=== PATIENT | female | born 1975 | race Caucasian/White ===

== ENCOUNTER → 2019-12-17 09:30 | Outpatient (CLI) | payer SELFPAY | PROVIDERS: Anesthesiology; PCP Family Medicine; Referring Provider Urology; Visit Provider Urology | DX: U07.1 COVID-19 (principal) | CPT/HCPCS: 87635; C9803; U0003 ==

== ENCOUNTER → 2020-02-18 12:45 | Outpatient (CLI) | payer SELFPAY ==
[2014-06-23 06:41] VITALS: BMI 37.1
[2020-02-18 16:00] LABS: Color, Urine Yellow (Yellow); Glucose, Dipstick Normal (Normal); Ketone-Dipstick Negative (Negative); Leukocyte Esterase-Dipstick 500 /ul (Negative); Nitrite-Dipstick Positive (Negative); Occult Blood-Urine 50 /ul (Negative); Protein-Dipstick Negative (Negative); Urine Bilirubin Dipstick Negative (Negative); Urine Clarity Clear (Clear); Urine Urobilinogen Normal (Normal)
== END ==
PROVIDERS: PCP Physician Assistant; Referring Provider Urology; Visit Provider Urology
DX: N39.0 Urinary tract infection, site not specified (principal)
CPT/HCPCS: 81002; 87077; 87086; 87088; 87186

== ENCOUNTER 2020-02-21 09:05 | Day surgery (SDC) | payer SELFPAY ==
[2014-06-23 06:41] VITALS: BMI 37.1
[2020-02-21] VITALS (8 sets, daily range): BP systolic 133–156; BP diastolic 90–104; PULSE 68–84; RESP 14–16; TEMP 36.2–36.7; O2SAT 93–99; BMI 38.2
--- NOTE | 2020-02-21 09:08 | OP.PCM_ITS ---
Problem List (1) Left renal stone Status: Acute Report of Operation Date of Procedure: 02/21/20 Pre-Operative Diagnosis: left renal calculus Post-Operative Diagnosis: same Surgery/Procedure Performed:: cystoscopy, left ureteral stent insertion, left renal extracorporeal shockwave lithotripsy Type of Anesthesia:: General Specimen's removed: none Description of Procedure: The patient is a 44-year-old female with a large left renal calculus identified on imaging. After discussing the risk benefits and alternatives, she agreed to proceed with surgical intervention. Informed consent was obtained. Patient is on Eliquis for PE and has been on this for more than 3 months and has stopped it in preparation for intervention. Patient was taken to the operating room and placed on the operating room table. Anesthesia monitored the head, neck, airway, IV access and vital signs throughout the case. Once anesthesia was appropriate ministered the patient was placed into dorsal lithotomy position was prepped and draped in usual sterile fashion. A cystourethroscopy was performed revealing no evidence of urethral or bladder abnormality. The left ureteral orifice was identified and intubated with a 0.035 Glidewire. A 6 Malay 24 cm double-J stent was inserted over the wire with good curling in the renal pelvis as seen on fluoroscopy, as well as the urinary bladder. The patient's bladder was then emptied and she was positioned for shockwave lithotripsy. The stone was easily identified. 3000 shocks were applied to the stone which appeared to be fragmented at the conclusion of the case. The patient was then awakened and taken to the recovery room in good condition. There were no complications during this procedure. Grafts/Implants Used: 6x24 JJ stent - Complications none - Admit VTE Documentation VTE Present on Admission: Yes VTE Mechan Device Prophylaxis: SCD's VTE Pharm Prophylaxis ordered?: Yes
--- NOTE | 2020-02-21 09:14 | DCINST_ITS ---
Discharge Diet: No Restrictions Discharge Activity: Return to Normal Activity, May not drive while taking narcotic pain medications. May resume sexual activity in: No Restrictions Call your doctor if you observe: Fever of 101 or Higher, Inability to urinate, Inability to have a bowel movement, Calf discomfort, Uncontrolled pain Allergies/Adverse Reactions: Allergies No Known Allergies Allergy (Verified 02/03/20 13:15) Medications to take at Discharge Lisinopril [Zestril] 20 mg PO DAILY 06/17/14 Apixaban [Eliquis] 5 mg PO BID 11/27/19 Oxycodone HCl/Acetaminophen [Percocet 5/325] 1 tablet PO Q8H PRN PRN 7 Days #20 tablet 02/21/20 Phenazopyridine HCl [Pyridium] 200 mg PO TID PRN PRN 7 Days #30 tab 02/21/20 The following prescriptions were given: Oxycodone HCl/Acetaminophen [Percocet 5/325] 1 tablet PO Q8H PRN PRN 7 Days #20 tablet PRN Reason: Pain Transmission Status: Received by [facility] Phenazopyridine HCl [Pyridium] 200 mg PO TID PRN PRN 7 Days #30 tab PRN Reason: Bladder Spasms Transmission Status: Pending to [facility] Primary Care Physician: Odalys Barclay PA [Primary Care Provider] - Test Results: Test results from this visit will be discussed in further detail at your follow- up appointment, if applicable. Please Follow Up With: Jaquelin Snell MD When: call for appt to be seen in 2-3 weeks Proposed Discharge Date: 02/21/20
[2020-02-21] MEDS: Lactated Ringers 1,000 ML 100 ML IV (09:48)
[2020-02-21] MEDS: Cefazolin 2 GM in 0.9% Normal Saline 100 ML IV (10:53)
[2020-02-21] MEDS: Acetaminophen 325 MG Tablet PO (13:42)
[2020-02-21] MEDS: oxyCODONE 5 MG Tablet PO (13:42)
== END 2020-02-21 15:05 | disposition home or self-care (01) ==
LOC: SDC 09:10 → AC 09:11
PROVIDERS: PCP Physician Assistant; Referring Provider Urology; Visit Provider Urology
PROC: (CPT 50590; principal; 2020-02-21 10:15)
DX: N20.0 Calculus of kidney (principal); I10 Essential (primary) hypertension; Z87.442 Personal history of urinary calculi; Z86.711 Personal history of pulmonary embolism; Z79.01 Long term (current) use of anticoagulants; Z86.16 Personal history of COVID-19
CPT/HCPCS: 00918; 52356; J7120; C2617; J2405

== ENCOUNTER → 2020-02-24 11:45 | Outpatient (CLI) | payer SELFPAY ==
[2020-02-21 09:27] VITALS: BMI 38.2
[2020-02-24 15:47] LABS: Hematocrit 44.1 % (37-47); Hemoglobin 14.4 g/dL (12.0-15.0); Mean Corp Hgb Conc 32.7 g/dL (32-36); Mean Corpuscular Hgb 28.2 pg (27.0-32.0); Mean Corpuscular Volume 86.5 fL (81-99); Mean Platelet Vol. 10.4 fl (6.2-12.0); Platelet Count 275 K/mm3 (150-450); RBC Distribution Width CV 13.5 % (11.6-14.6); RBC Distribution Width SD 42.9 fl (35.1-43.9)
[2020-02-24 16:13] LABS: Anion Gap 9 (5-15); BUN 15 mg/dL (7-18); BUN/Creat Ratio 11.3 RATIO (10-20); Calcium,Total 9.1 mg/dL (8.5-10.1); Chloride 100 mmol/L (98-107); Creatinine, Serum 1.33 mg/dL (0.55-1.02); EST Glomerular Filtration Rate 46 mL/min (>60); Est Glom Filt Rate - Afr Amer 55 mL/min (>60); Glucose 74 mg/dL (74-106); Potassium 3.6 mmol/L (3.5-5.1); Sodium Level 133 mmol/L (136-145)
== END ==
PROVIDERS: PCP Physician Assistant; Referring Provider Urology; Visit Provider Urology
DX: N20.0 Calculus of kidney (principal); N39.0 Urinary tract infection, site not specified
CPT/HCPCS: 36415; 80048; 85027; 87086

== ENCOUNTER → 2020-02-26 12:58 | Outpatient (CLI) | payer SELFPAY ==
[2020-02-21 09:27] VITALS: BMI 38.2
--- NOTE | 2020-02-26 13:04 | US_ITS ---
STUDY: RENAL ULTRASOUND - COMPLETE REASON FOR EXAM: Female, 44 years old. LEFT FLANK PAIN -- HX OF NEPHROLITHIASIS -- LEFT LITHOTRIPSY DONE 5 DAYS AGO -- RIGHT LITHOTRIPSY DONE 8 YEARS AGO TECHNIQUE: Ultrasound evaluation of the kidneys was performed with real-time and static vasquez-scale imaging. COMPARISON: None. FINDINGS: RIGHT KIDNEY: Normal location of the right kidney, which is normal in size. The right kidney measures 10.8 cm x 5.4 cm x 5 cm. There is a normal cortex of the right kidney. The renal cortex measures 1.7 cm. There is no right renal mass or cyst. There are 2 nonobstructive intrarenal calculi measuring 5 mm. There is no right hydronephrosis. DISTAL RIGHT URETER: There is non-visualization of the distal right ureter. There is no demonstrated right ureterovesical junction calculus. There is a visualized right ureteral jet. LEFT KIDNEY: Normal location of the left kidney, which is normal in size. The left kidney measures 12.8 cm x 6.3 cm x 6.3 cm. There is a normal cortex of the left kidney. The renal cortex measures 1.9 cm. There is a 1.8 cm x 1.9 cm x 1.5 cm left renal cyst. There are 2 nonobstructive intrarenal calculi. The larger measures 8 mm. There is moderate hydronephrosis of the left kidney. DISTAL LEFT URETER: There is non-visualization of the distal left ureter. There is no demonstrated left ureterovesical junction calculus. There is a visualized left ureteral jet. AORTA: There is no elongation or tortuosity of the abdominal aorta. Aorta measures: Proximal cm. Middle cm. Distal cm. Aorta measure transversely: Proximal cm. Middle cm. Distal cm. There is no demonstrated aneurysm.. I.V.C.: The IVC is patent. BLADDER: The distended urinary bladder has a volume of 151 ml. There is a normal wall thickness of the distended urinary bladder. There is no demonstrated mass within the urinary bladder. There are no demonstrated bladder calculi. US/Kidney and Bladder IMPRESSION: Nonobstructive bilateral intrarenal calculi. Moderate degree of left hydronephrosis. Left renal cyst. Electronically Signed: Hussain Kelly MD at 13:58 EST , Service support ,
--- NOTE | 2020-02-26 13:38 | RAD_ITS ---
STUDY: X-RAY - ABDOMEN/PELVIS REASON FOR EXAM: Female, 44 years old. LEFT SIDE PAIN, HX RECENT STENT PLACED TECHNIQUE: Two AP supine views of the abdomen and pelvis. COMPARISON: None. FINDINGS: Normal visualized lung bases. There is an unremarkable bowel gas pattern. There is no demonstrated free abdominal air. Left ureteral stent. No evidence of stones. The visualized liver, spleen and kidneys are grossly normal in size and morphology. Normal soft tissue structures. Normal visualized osseous structures. RAD/Abdomen Single View IMPRESSION: Left ureteral stent. No evidence of stones. Electronically Signed: Victor Hugo Calvillo DO at 0:38 EST Tel , Service support ,
== END ==
PROVIDERS: PCP Physician Assistant; Referring Provider Urology; Visit Provider Urology
DX: N20.0 Calculus of kidney (principal)
CPT/HCPCS: 74018; 76770

== ENCOUNTER → 2020-02-26 15:33 | Outpatient (CLI) | payer SELFPAY ==
[2020-02-21 09:27] VITALS: BMI 38.2
--- NOTE | 2020-02-26 15:35 | CT_ITS ---
STUDY: CT ABDOMEN AND PELVIS WITHOUT CONTRAST REASON FOR EXAM: Female, 44 years old. LEFT HYDRONEPHROSIS W/ STENT, RECENT LITHOTRIPSY, FLANK PAIN ,RENAL STONE RADIATION DOSAGE (If Supplied By Facility): CTDIvol = ( 21.83 ) mGy, DLP = ( 1210.74 ) mGycm TECHNIQUE: Transaxial images were obtained from the dome of the diaphragm to the symphysis pubis without oral contrast, and without intravenous contrast. Sagittal and coronal images were reconstructed. Individualized dose optimization techniques were used for this CT. COMPARISON: None. FINDINGS: There is a 2.1 cm x 0.9 cm pleural-based nodular density in the posterior medial aspect of the right lower lobe. This most likely represents an area of scarring or atelectasis. Follow-up is recommended. The visualized portions of the heart are within normal limits. There is decreased attenuation of the liver consistent with steatosis. There is a solitary gallstone. Borderline splenomegaly. Normal pancreas. Normal bilateral adrenal glands. 7 mm nonobstructive calculus in the posterior calyx of the mid pole of the right kidney. 2 tiny nonobstructive intrarenal calculi also seen in the lower pole calyx of the right kidney. Moderate degree of left hydronephrosis. A left-sided double-J stent catheter is seen in the mildly dilated left ureter. The distal tip of the double J stent is seen within the left side of the urinary bladder. There is a 5.4 mm nonobstructive calculus in the lower pole calyx of the left kidney. There is also evidence of a 1.8 cm cyst in the lower pole of the left kidney. There is a small hiatal hernia. Normal small intestine. Normal colon. The appendix is visualized and appears normal. Normal abdominal aorta. Normal inferior vena cava. There is borderline retroperitoneal lymphadenopathy with enlarged nodes no greater than 10mm in the short axis diameter. Normal urinary bladder. Normal abdominal wall. Normal osseous structures. CT/Abdomen/Pelvis without Cont IMPRESSION: Moderate size left hydronephrosis and left hydroureter with a double-J stent catheter in the left ureter. Nonobstructive bilateral intrarenal calculi. Small cyst in the left kidney. Diffuse fatty eventration of the liver. Solitary gallstone. Electronically Signed: Hussain Kelly MD at 15:54 EST , Service support ,
== END ==
PROVIDERS: PCP Physician Assistant; Referring Provider Urology; Visit Provider Urology
DX: N13.2 Hydronephrosis with renal and ureteral calculous obstruction (principal)
CPT/HCPCS: 74176

== ENCOUNTER → 2020-03-11 09:02 | Outpatient (CLI) | payer SELFPAY ==
[2020-02-21 09:27] VITALS: BMI 38.2
--- NOTE | 2020-03-11 09:08 | RAD_ITS ---
STUDY: X-RAY - ABDOMEN/PELVIS REASON FOR EXAM: Female, 44 years old. Kidney stones TECHNIQUE: Single AP view of the abdomen / pelvis. COMPARISON: Comparison is made with prior study dated 02/26/2020. FINDINGS: There is a moderate amount of colonic fecal material. A left-sided double-J stent catheter is seen with the proximal tip in the left renal pelvis and distal tip in the left side of the urinary bladder. Faint calculus in the midportion of the right kidney. There are calcified phleboliths in the pelvis. Normal visualized osseous structures. RAD/Abdomen Single View IMPRESSION: A left-sided double-J stent catheter is seen. Phleboliths are seen in the right hemipelvis. Small calculus in the midportion of the right kidney. Electronically Signed: Hussain Kelly MD at 13:57 EST , Service support ,
== END ==
PROVIDERS: PCP Physician Assistant; Referring Provider Urology; Visit Provider Urology
DX: N20.0 Calculus of kidney (principal)
CPT/HCPCS: 74018

== ENCOUNTER → 2020-04-16 14:58 | Outpatient (CLI) | payer SELFPAY ==
[2020-04-09 10:21] VITALS: BMI 37.8
--- NOTE | 2020-04-16 14:59 | CT_ITS ---
STUDY: CTA CHEST REASON FOR EXAM: Female, 44 years old. h/o PE with residual symptoms and RLL density RADIATION DOSAGE (If Supplied By Facility): CTDIvol = ( 14.79 ) mGy, DLP = ( 503.55 ) mGycm TECHNIQUE: The examination was performed with the intravenous administration of IV 100mL Isovue-370. Post-processing of the angiographic images was performed, with multiplanar reformation and 3D reconstruction. Individualized dose optimization techniques were used for this CT. COMPARISON: CT of the abdomen 02/25/2019. FINDINGS: Normal enhancement of the main pulmonary artery and right and left pulmonary arteries. Normal enhancement of the bilateral peripheral pulmonary arteries. There is no demonstrated pulmonary embolism. Normal thoracic aorta and visualized great vessels. There is no demonstrated aortic dissection. Normal heart and pericardium. Normal mediastinum. Normal hilar regions. Normal visualized trachea and bronchi. The lungs are well expanded. Confirmation of a focal hemispheric soft tissue density along the posterior surface of the right lower lobe, measuring 1.9 x 2.0 x 2.9 cm. This lesion is indeterminate. Neoplasm is not excluded. PET scan is recommended. No definite infiltrates. No effusions. Normal osseous structures. Limited views through the upper abdomen show cholelithiasis. CT/CTA Chest W/WO Contrast IMPRESSION: Normal CTA chest examination, without a demonstrated pulmonary embolism or arterial dissection. 2.9 cm suspicious focal soft tissue pleural based density in the right lower lobe. Neoplasm is not excluded. PET scan recommended. Electronically Signed: Mendez Levine MD at 16:30 EST , Service support ,
== END ==
PROVIDERS: PCP Physician Assistant; Referring Provider Internal Medicine Critical Care Medicine; Visit Provider Internal Medicine Critical Care Medicine
DX: R93.89 Abnormal findings on diagnostic imaging of other specified body structures (principal); Z86.711 Personal history of pulmonary embolism
CPT/HCPCS: 71275; Q9967; A4216

== ENCOUNTER → 2020-04-20 10:51 | Outpatient (CLI) | payer SELFPAY ==
[2020-04-20 10:12] VITALS: BMI 37.8
[2020-04-20 11:15] LABS: Platelet Count 341 K/mm3 (150-450)
[2020-04-20 11:26] LABS: International Normalized Ratio 1.2; Prothrombin Time (Protime)PT. 14.2 SECONDS (11.7-14.9)
[2020-04-20 11:27] LABS: Partial Thromboplast Time 32.3 Seconds (24.1-36.2)
== END ==
PROVIDERS: PCP Physician Assistant; Referring Provider Nurse Practitioner Acute Care; Visit Provider Nurse Practitioner Acute Care
DX: R06.02 Shortness of breath (principal)
CPT/HCPCS: 36415; 85049; 85610; 85730

== ENCOUNTER → 2020-05-05 09:14 | Outpatient (CLI) | payer SELFPAY ==
[2020-04-20 10:12] VITALS: BMI 37.8
--- NOTE | 2020-05-04 | ASPIGT_PTH ---
PATIENT: DOTTY HUMPHREY LOC: [place] U#:[id number] AGE/SX: 49/F ROOM: RE05/05/[address]: ADELSO Hilton : 1975 BED: DIS: SPEC #: [id number] RECD: 05/05/20 10:43 STATUS: ANCELMO FUNES #: [id number] KAYLIN: 05/04/20 00:[address]: Emma Chatman NP DEPT: SURGICAL PATHOLOGY RECD BY: Ilir Smiley ENTERED: 05/05/20 10:44 SP TYPE: ASP RAD OTHR DR: TOI Giordano Tissues: Right lung, NOS Procedures: FNA Specimen Adequacy Special Stain Group II Surgery Specimen Level IV Imprint (control) HEADER OPERATION: Right lung, CT-guided core biopsy PRE-OP DIAGNOSIS: Right lung mass TISSUE SUBMITTED: Right lung mass MICROSCOPIC DIAGNOSIS Right lung mass, CT-guided core biopsy: Fragments of lung parenchymal tissue with focal minimal fibrosis. Negative for malignancy. See comment. NESS:camille 05/06/2020 COMMENT The specimen is evaluated at the time of biopsy by Dr. Morel. Immediate Evaluation = Negative for malignant cells. Fragments of liver parenchymal tissue are also noted with diffuse macrovesicular steatosis and mild portal chronic inflammation. Correlation with clinical, radiologic findings and appropriate follow up are necessary. Case has been reviewed in consultation with Dr. Crandall who concurs with the above diagnosis. IDC:AM MICROSCOPIC DESCRIPTION Slides are reviewed. GROSS DESCRIPTION Received in fixative is one container labeled with the patient's name and designated right lung, CT-guided core biopsy. The specimen consists of multiple irregular fragments of araujo soft tissue that in aggregate measure 1 x 0.1 x <0.1 cm. The specimen is totally submitted in one cassette. Two touch imprints are prepared at the time of core biopsy. / NESS:camille 05/05/20 TC:5 CPT: 25279, 10372
[2020-05-05] VITALS (17 sets, daily range): BP systolic 96–149; BP diastolic 41–93; PULSE 85–97; RESP 12–23; TEMP 36.5; O2SAT 98–100; BMI 38.6
--- NOTE | 2020-05-05 09:15 | CT_ITS ---
PROCEDURE: CT GUIDED CORE NEEDLE BIOPSY OF A right lower lobe LUNG LESION INDICATION: Female, 44 years old. RIGHT lower lobe mass PHYSICIAN: Dr. GITA Larkin CONSENT: Written informed consent was obtained having explained the risks, benefits and alternatives in detail with the patient who accepted the risks and agreed to proceed. Laboratory review and clinical assessment was performed. CONSCIOUS SEDATION PROTOCOL: The Drugs used were: 2 mg Versed, IV., and 50 mcg Fentanyl, IV. The sedation time was: 16 minutes. Consideration must I 10:13 AM intermittent 10:19 AM The conscious sedation protocol was independently monitored. RADIATION DOSAGE (If Supplied By Facility): CTDIvol = ( 14.78 ) mGy, DLP = ( 362.71 ) mGycm Individualized dose optimization techniques were used for this CT. TECHNIQUE: The patient was placed in the prone position. A noncontrast CT was performed to localize the lesion in the posterior right lower lobe . The skin surface was prepped and draped in a sterile fashion. 1% lidocaine was used for local anesthesia. Using CT guidance, a 20-gauge coaxial biopsy device was advanced to the periphery of the lesion. A total of 4 core specimens were obtained. The specimens were placed in a formalin solution. A post procedure CT demonstrated no adverse sequelae or pneumothorax. The patient tolerated the procedure well without adverse event. A negative biopsy does not exclude malignancy. Further imaging or clinical followup based on patient condition and degree of clinical suspicion for malignancy. Suggest rebiopsy, if biopsy results do not match with clinical scenario. CT/Biopsy/Inj or Needle Placement IMPRESSION: 1. CT directed core needle biopsy of the right posterior lower lobe nodule using CT image guidance with image documentation as described. Pathology results are pending. 2. Conscious Sedation protocol utilized with independent monitoring. Electronically Signed: Hussain Kelly MD at 10:44 EDT , Service support ,
[2020-05-05] MEDS: Midazolam 2 MG/2 ML Syringe IV (10:13)
[2020-05-05] MEDS: fentaNYL 100 MCG/2 ML Ampul IV (10:14)
--- NOTE | 2020-05-05 10:30 | RAD_ITS ---
STUDY: X-RAY CHEST REASON FOR EXAM: Female, [address] bx -- 2 hours post lung biopsy TECHNIQUE: AP inspiration and expiration views. COMPARISON: Comparison is made with prior study done earlier today. FINDINGS: 2 hour post right lung biopsy radiographs. No evidence of pneumothorax. RAD/Chest Insp/Exp 2 View IMPRESSION: No evidence of pneumothorax on the delayed postright lung biopsy radiographs. Electronically Signed: Hussain Kelly MD at 13:14 EDT , Service support ,
--- NOTE | 2020-05-05 12:38 | RAD_ITS ---
STUDY: X-RAY CHEST REASON FOR EXAM: Female, [address] bx -- immediately post lung biopsy TECHNIQUE: AP inspiration and expiration views. COMPARISON: None. FINDINGS: Immediate post right lung biopsy radiographs. No evidence of pneumothorax. RAD/Chest Insp/Exp 2 View IMPRESSION: No evidence of pneumothorax on the immediate post right lung biopsy radiographs. Electronically Signed: Hussain Kelly MD at 11:09 EDT , Service support ,
== END ==
PROVIDERS: PCP Physician Assistant; Referring Provider Nurse Practitioner Acute Care; Visit Provider Nurse Practitioner Acute Care
DX: J84.10 Pulmonary fibrosis, unspecified (principal)
CPT/HCPCS: 32408; 71046; 77012; 88172; 88305; 88307; 88313; J7040; A4216; C2613

== ENCOUNTER → 2020-05-19 16:13 | Outpatient (CLI) | payer SELFPAY ==
[2020-05-11 11:09] VITALS: BMI 38.6
--- NOTE | 2020-05-19 16:00 | PET_ITS ---
EXAMINATION: FDG PET/CT INDICATIONS: A 44-year-old female with apparent history of pulmonary nodularity presenting for initial staging examination. COMPARISON EXAMINATION: CT of the chest report dated 04/16/20 TECHNIQUE: Following the intravenous administration of 12.58 mCi of F-18 deoxyglucose, multiplanar image acquisitions of the neck, chest, abdomen and pelvis to level of mid thigh, obtained at one hour post radiopharmaceutical administration contemporaneously interpreted with the current CT of the neck, chest, abdomen and pelvis to level of mid thigh, dated 05/19/[address] of the chest report dated 04/16/20 reveal: FINDINGS: 1. There is no quantitative scintigraphic evidence of abnormal increased glucose metabolism to correlate with an approximate 2.5-cm pleural-based density noted in the right lower posterior lung-right lower lobe on review of CT of the thorax dated 05/19/20. 2. Normal physiologic distribution of the radiopharmaceutical is apparent in the hepatic and splenic parenchyma, both renal units, bladder and visualized intestinal tract. The visualized portion of the cerebral cortex demonstrate symmetric and preserved glucose metabolism. Diffuse radiopharmaceutical concentration is noted in all four quadrants of the abdomen and pelvis. Pertinent CT findings are as follows: CHEST: Bilateral axillary soft tissue densities with fatty hilus are non-glucose avid. Scattered mediastinal soft tissue demonstrates no evidence of increased tracer uptake. There are no additional parenchymal densities-nodules defined in the right and left hemithorax on meticulous review of the coregistered CT of the chest dated 05/19/20. ABDOMEN AND PELVIS: There is borderline fatty metamorphosis-steatosis defined in the hepatic parenchyma. Cholelithiasis is defined. Bilateral axillary soft tissue densities with fatty hilus are ametabolic. The uterus appears surgically absent. SKELETAL: Degenerative changes are noted in the cervical, thoracic and lumbar spine without evidence of increased radiopharmaceutical concentration. PET/PET/CT Tumor Base -Thigh Init IMPRESSION: 1. NEGATIVE EXAMINATION. There is no quantitative scintigraphic evidence of abnormal increased glucose metabolism to correlate with an approximate 2.5-cm pleural-based density noted in the right lower posterior lung-right lower lobe on review of CT of the thorax dated 05/19/20. 2. Anatomic stability may be ensured in the right lower posterior lung-right lower lobe with repeat CT of the thorax in 3-6 months if clinically indicated. (Verito, Seminars in Thoracic and Cardiovascular Surgery 14:292, 2002). Electronic Signature Dirk Reece D.O. Accurate Quantification of SUVs for this report are calculated using the exclusive [employer]? Technology.??Exclusive [place]. Patent [employer]? Technology ([place].S. Patent No. [phone] [id number]). This image Electronically Signed: Dirk Reece DO at 21:34 EDT Tel , Service support ,
== END ==
PROVIDERS: PCP Physician Assistant; Visit Provider Internal Medicine Critical Care Medicine
DX: R91.1 Solitary pulmonary nodule (principal)
CPT/HCPCS: 78815; A9552

== ENCOUNTER 2021-03-30 13:55 | Outpatient (CLI) | payer SELFPAY ==
--- NOTE | 2021-03-30 14:01 | CT_ITS ---
STUDY: CT CHEST WITHOUT CONTRAST REASON FOR EXAM: Female, 45 years old. Follow 2.5 cm RLL mass RADIATION DOSAGE (If Supplied By Facility): CTDIvol = ( 18.67 ) mGy, DLP = ( 612.08 ) mGycm TECHNIQUE: Transaxial imaging was performed without the administration of intravenous contrast material. Multiplanar coronal and sagittal images were reformatted. Individualized dose optimization techniques were used for this CT. COMPARISON: Comparison is made with prior examination of 04/16/2020. FINDINGS: Stable small benign appearing bilateral axillary nodes. The previously seen pleural-based nodule in the right lower lobe presently measures 1.4 cm x 1.6 cm. This abuts the pleural surface. A linear density is seen arising from its anterior portion. This may represent a focal area of round atelectasis. There is no demonstrated pleural abnormality. Normal heart and pericardium. Normal mediastinum. Normal hilar regions. Normal unenhanced pulmonary arteries. Normal aorta arch and descending thoracic aorta. Normal osseous structures. Diffuse fatty infiltration of the liver. There is a 1.1 cm low density in the left lobe of the liver suggestive of a small cyst. Solitary gallstone. CT/Chest without Contrast IMPRESSION: Interval decrease in size of the pleural-based nodule in the right lower lobe. It presently measures 1.4 cm x 1.6 cm. This is suggestive of round atelectasis. Diffuse fatty fixation of the liver. Findings suggestive of a 1.17 m cyst in the left lobe of the liver. Electronically Signed: Hussain Kelly MD at 14:45 EST ,
== END 2021-03-30 23:59 | disposition home or self-care (01) ==
LOC: CT 13:59
PROVIDERS: PCP Physician Assistant; Referring Provider Nurse Practitioner Acute Care; Visit Provider Nurse Practitioner Acute Care
DX: R91.8 Other nonspecific abnormal finding of lung field (principal)
CPT/HCPCS: 71250

== ENCOUNTER → 2022-04-01 | Outpatient (CLI) | payer SELFPAY ==
--- NOTE | 2022-04-01 15:14 | CT_ITS ---
EXAM: CT chest without IV contrast. HISTORY: Lung Nodule follow up TECHNIQUE: No intravenous contrast. A radiation dose optimization technique was used for this scan. COMPARISON: Chest CT March 30, 2021. LIMITATIONS: None. LUNGS: The pleural-based nodular opacity in the right lower lobe is grossly stable in size measuring 1.6 x 1.4 cm. HEART: Normal. PLEURA: Normal. AORTA: Normal caliber. MEDIASTINUM: Normal. UPPER ABDOMEN: Fatty infiltration of the liver. Cyst in the left hepatic lobe. 1.8 cm gallstone. No pericholecystic inflammatory change. Left adrenal myelolipoma is stable in appearance. Few punctate stones in the partially visualized left kidney. BONES/SOFT TISSUES: No acute fracture. OTHER: None. CONCLUSION: The pleural-based nodular opacity in the right lower lobe is grossly stable in size since the prior exam measuring 1.6 x 1.4 cm. Atelectasis/scarring is favored as previously described. Electronically Signed: Abdoulaye Murillo MD at 3:36 EST , CT/Chest without Contrast IMPRESSION: undefined
== END | disposition home or self-care (01) ==
PROVIDERS: PCP Physician Assistant; Visit Provider Internal Medicine Critical Care Medicine
DX: R91.1 Solitary pulmonary nodule (principal)
CPT/HCPCS: 71250